=== PATIENT | female | born 1950 | race Hispanic/Latino ===

== ENCOUNTER 2021-10-20 06:08 | Emergency (ER) | payer MEDICARE ==
[~2021-10-20] VITALS: Ht 162.6 cm; Wt 81.2 kg
[2021-10-20 07:21] LABS: APPEARANCE,URINE CLOUDY (CLEAR); BILIRUBIN,URINE NEGATIVE (NEGATIVE); COLOR,URINE RED (YELLOW); GLUCOSE, URINE (UA) NEGATIVE (NEGATIVE); KETONES,URINE NEGATIVE (NEGATIVE); LEUKOCYTE ESTERASE ,URINE MODERATE (NEGATIVE); NITRATE,URINE NEGATIVE (NEGATIVE); OCCULT BLOOD,URINE LARGE (NEGATIVE); PH,URINE 5.5 (5.0-8.0); PROTEIN,URINE 100 mg/dL (NEGATIVE)
[2021-10-20] MEDS ORDERED: CEPH500B PO (07:26)
[2021-10-20] MEDS ORDERED: PHEN-847 PO (07:26)
[2021-10-20] MEDS ORDERED: PHENAZOPYRIDINE HCL 200 MG TABLET PO SCH (07:30)
[2021-10-20] MEDS ORDERED: CEPHALEXIN 500 MG CAPSULE PO SCH (07:30)
[2021-10-20 07:53] LABS: RBC,URINE 51-100 /HPF (0-1)
[2021-10-20 07:54] LABS: BACTERIA,URINE Few /HPF (None Seen); SQUAMOUS EPITHELIAL CELL,UR 0-2 /HPF (0-2)
[2021-10-20 07:56] VITALS: BP 127/77
== END 2021-10-20 08:29 | disposition home or self-care (01) ==
LOC: EDH 06:08
DX: N39.0 Urinary tract infection, site not specified (principal); I10 Essential (primary) hypertension; Z88.0 Allergy status to penicillin; Z88.1 Allergy status to other antibiotic agents; Z88.2 Allergy status to sulfonamides; Z90.49 Acquired absence of other specified parts of digestive tract
CPT/HCPCS: 81001; 87077; 87088; 87186